=== PATIENT | male | born 1965 | race Caucasian/White ===

== ENCOUNTER 2016-09-26 12:48 | Emergency (ER) | payer MEDICARE, BC, OTHER ==
[~2016-09-26 12:48] MED LIST: ALLEGRA180 PO; LEXAPRO5 MG PO; MULTIPLE VIT PO; NEXIUM40 PO; PROTONIX PO; REFRESH1 % OP; SINGULAIR1 PO; TRAZ50 PO; WELLXL150 PO
[2016-09-26 12:50] LABS: BASOPHILS 1.7 %; BASOPHILS ABSOLUTE 0.05 10/3/uL (0.0-0.16); EOSINOPHILS 2.7 %; EOSINOPHILS ABSOLUTE 0.08 10/3/uL (0.0-0.53); HEMOGLOBIN 12.7 g/dL (13.6-17.8); IMMATURE GRANULOCYTES 0.7 %; IMMATURE GRANULOCYTES ABSOLUTE 0.02 10/3/uL (0.0-0.11); LYMPHOCYTES 23.5 %; LYMPHOCYTES ABSOLUTE 0.69 10/3/uL (0.67-4.30); MEAN CORPUS HGB CONC 34.2 g/dL (32.0-36.0); MEAN CORPUSCULAR HEMOGLOB 33.4 pg (26.0-34.0); MEAN CORPUSCULAR VOLUME 97.6 fL (80-100); MEAN PLATELET VOLUME 9.5 fL (9.2-13.0); MONOCYTES 10.6 %; MONOCYTES ABSOLUTE 0.31 10/3/uL (0.21-1.20); NEUTROPHILS 60.8 %; NEUTROPHILS ABSOLUTE 1.78 10/3/uL (2.02-8.40); RBC DISTRIBUTION WIDTH 13.1 % (12.0-16.0)
[2016-09-26 12:54] LABS: ER CBC TAT 0 Hrs 12 Mins; HEMATOCRIT 37.1 % (40.0-51.0); MANUAL DIFF NO %; PLATELET COUNT 274 10/3/uL (150-400); WHITE BLOOD CELLS 2.9 10/3/uL (4.5-10.5)
[2016-09-26 12:56] LABS: INTERNATIONAL NORMAL RATI 1.3 UNITS (-); PARTIAL THROMBO TIME 31.9 SEC (22.5-37.2); PROTIME (NOT ORD) 15.8 SEC (12.0-14.5)
[2016-09-26 13:05] LABS: INFLUENZA A SCREEN NEGATIVE (NEGATIVE); INFLUENZA B SCREEN NEGATIVE (NEGATIVE)
[2016-09-26 13:07] LABS: ALBUMIN 2.8 G/DL (3.5-5.0); BUN (BLOOD UREA NITROGEN) 21 MG/DL (6-23); CALCIUM, SERUM 8.2 MG/DL (8.5-10.4); CHEST PAIN PROFILE TAT 0 Hrs 25 Mins; CHLORIDE, SERUM 102 MMOL/L (96-112); CO2 (CARBON DIOXIDE) 32 MMOL/L (24-34); CREATININE 1.41 MG/DL (0.70-1.30); DIRECT BILIRUBIN 0.2 MG/DL (0.0-0.4); GFR AFRICAN AMERICAN 67 ML/MIN (>=60); GFR NON AFRICAN AMERICAN 58 ML/MIN (>=60); SGOT(AST) 15 U/L (5-40); SGPT(ALT) 18 U/L (5-65); SODIUM, SERUM 139 MMOL/L (135-148); TROPONIN I <0.02 NG/ML (<0.05)
[2016-09-26 13:09] LABS: ALKALINE PHOSPHATASE 58 U/L (45-117); GLUCOSE, SERUM 82 MG/DL (60-99); INDIRECT BILIRUBIN(NOT ORDER) 0.5 MG/DL (0.1-0.9); POTASSIUM, SERUM 4.1 MMOL/L (3.5-5.3); TOTAL BILIRUBIN 0.7 MG/DL (0-1.2)
[2016-09-26 13:20] LABS: ASCORBIC ACID (UR NOT ORDER) NEG (NEG); BILIRUBIN, URINE NEGATIVE (NEG); ER URINALYSIS TAT 0 Hrs 00 Mins; KETONE, URINE NEGATIVE (NEG); LEUKOCYTE ESTERASE(NOT OR NEG (NEG); NITRITE (URINE) NEG (NEG); WBC (NOT ORDERED) (RFLEX) < 1 (0-5)
[2016-09-26 13:50] LABS: PROCALCITONIN <0.05 ng/mL (<0.5)
[2017-04-17] MEDS ORDERED: VITAMIN D1000 UNI1 PO (13:00)
[2017-04-17] MEDS ORDERED: TRAZ50 PO (13:01)
[2017-04-17] MEDS ORDERED: ALLEGRA180 PO (13:01)
[2017-04-17] MEDS ORDERED: WELLSR100 PO (13:02)
[2017-04-17] MEDS ORDERED: RISPERDAL0.25 MG PO (13:02)
== END 2016-09-26 16:59 | disposition home or self-care (01) ==
LOC: ER 12:48
PROVIDERS: Emergency Medicine
DX: B34.9 Viral infection, unspecified (principal); N18.9 Chronic kidney disease, unspecified; E86.0 Dehydration; R42 Dizziness and giddiness; Z88.0 Allergy status to penicillin; Z88.1 Allergy status to other antibiotic agents; Z88.2 Allergy status to sulfonamides; Z79.899 Other long term (current) drug therapy
CPT/HCPCS: 71010; 80048; 80076; 81001; 82140; 83605; 83735; 84145; 84484; 85025; 85610; 85730; 87040; 87070; 87804; 87880; 93005; 99284

== ENCOUNTER 2016-09-30 21:14 | Inpatient (IN) | payer MEDICARE, BC, OTHER ==
--- NOTE | ~2016-09-30 | HP ---
History And Physical [place] [id number] [facility] [place]. [address] NAME: JANEY FERMIN : 67 STATUS : ADM Afshan PAT#: [id number] AGE: 50 ADM/REG DATE : 09/30/16 MR#: [id number] REPORT SERV DATE: 10/01/16 DICTATED BY: CHRIS BOSE DATE: 10/01/16 REPORT STATUS : Draft TRANSCRIBED BY: MODL DATE: 10/01/16 DATE OF ADMISSION: 09/30/2016 CHIEF COMPLAINT: Lightheadedness and dizziness. HISTORY OF PRESENT ILLNESS: This is a 50-year-old gentleman with history of Down syndrome, presenting with lightheadedness and dizziness. Please note, the patient is not able to provide any valuable history, and the patient's mother, who was at bedside, was not a good historian either. The patient is apparently coming in because he was having episodes of lightheadedness and dizziness at home for the past three weeks. Apparently, for the past three weeks, the patient has not had any water to drink, the only thing he had to drink was Dr Pepper and very little of some ice teas. With that, the patient apparently started having some episodes of lightheadedness and dizziness. The patient was seen in the ER and has had a fairly extensive workup including lab work, cultures, and imaging to include CTs of the head which were all benign. Every time, the patient was actually discharged to home from the ER. The patient had another episode today and was brought back to the ER again. In the ER, the patient was found to be afebrile and hemodynamically stable. Initial lab evaluation revealed a creatinine of 1.64. Rest of the initial labs were all benign. CT of the head was unremarkable and chest x-ray was within normal limits. The patient was then found to be slightly hypotensive throughout the ER stay with blood pressures 90s over 50s. The patient was given IV fluid resuscitation with only small amount of urine outputs. When the patient was still up, he was unsteady on his feet. Internal Medicine consultation was thus requested for admission the patient for observation overnight and for continued fluid hydration. REVIEW OF SYSTEMS: The patient's mom reports that he had subjective fevers and chills along with headaches, but otherwise, no focal infectious symptoms. The patient has not had any cough or shortness of breath. Did not have any urinary symptoms. Did not have any diarrhea. REVIEW OF SYSTEMS: 14-point review of systems also reviewed and negative other than mentioned above. MEDICATIONS: The list is still pending at this time. PAST MEDICAL HISTORY: 1. Down syndrome. 2. VSD, for which the patient follows with Dr. Jane. 3. Celiac disease. PAST SURGICAL HISTORY: Ear surgery. FAMILY HISTORY: 1. Heart disease. 2. Prostate cancer. History And Physical [address] [address] NAME: JANEY FERMIN : 67 STATUS : ADM Afshan PAT#: [id number] AGE: 50 ADM/REG DATE : 09/30/16 MR#: [id number] REPORT SERV DATE: 10/01/16 DICTATED BY: CHRIS BOSE DATE: 10/01/16 REPORT STATUS : Draft TRANSCRIBED BY: TRAVON DATE: 10/01/16 SOCIAL HISTORY: The patient does not smoke, drink alcohol, or use any illicit drugs. The patient lives at home with his mother who is at bedside here in the ER. PHYSICAL EXAMINATION: VITAL SIGNS: Temperature 98.7, blood pressure 116/75, but the patient would dip down to 90s over 50s, pulse 83, respiratory rate is 14, saturating 100% on room air. NEURO: The patient is alert and oriented x3 with no focal neurologic deficits. GENERAL: The patient is awake, does not appear to be in acute distress, and he is cooperative. NECK: No JVD. No lymphadenopathy. Normal thyroid. CHEST: No midline sternotomy scar and no tenderness to palpation. LUNGS: Clear to auscultation bilaterally with normal respiratory effort on room air. CARDIOVASCULAR: Regular rate and rhythm with no murmurs, rubs, or gallops, and PMI is nondisplaced. ABDOMEN: Soft, nontender, with active bowel sounds and no organomegaly. EXTREMITIES: No edema. Normal distal pulses. No calf tenderness. SKIN: Clean, dry, warm, and intact. LABORATORY DATA: Sodium is 142, potassium 4.2, chloride 103, BUN 23, creatinine 1.64, glucose 86, calcium 7.9, magnesium 2.2. White blood cell count is 2.9, hemoglobin 12.1, platelets 247. INR is 1.2. Troponin is less than 0.02. CT of the head was unremarkable and chest x-ray was within normal limits. ASSESSMENT: This is a 50-year-old gentleman with history of Down syndrome, ventricular septal defect, and celiac disease presenting with dehydration and acute kidney injury. 1. Dehydration from not having had enough water intake for the past few weeks. 2. Acute kidney injury from above. 3. Down syndrome. 4. Celiac disease. 5. Ventricular septal defect. PLAN: My plan is to admit the patient for observation overnight. The patient will be monitored under telemetry. The patient will be given generous IV fluid resuscitation. I will check orthostatic vital signs. In's and out's will be closely monitored as well as electrolytes and renal function as the patient is rehydrated. For celiac disease, gluten- free diet will be ordered. Otherwise, for the rest of stable past medical conditions, including Down syndrome, VSD, et al., I will continue home medications. Standard DVT prophylaxis. The patient is full code at this time. Sheila/TRAVON Chris Bose MD History And Physical [address] [address] NAME: JANEY FERMIN : 67 STATUS : ADM Afshan PAT#: [id number] AGE: 50 ADM/REG DATE : 09/30/16 MR#: [id number] REPORT SERV DATE: 10/01/16 DICTATED BY: CHRIS BOSE DATE: 10/01/16 REPORT STATUS : Draft TRANSCRIBED BY: TRAVON DATE: 10/01/16 / [id number] CC: Yash Liz M.D.
--- NOTE | ~2016-09-30 | DS ---
Discharge Summary [place] [address] [place]. [address] NAME: JANEY FERMIN : 67 STATUS : DIS Afshan PAT#: [id number] AGE: 50 ADM/REG DATE : 09/30/16 MR#: [id number] REPORT SERV DATE: 10/03/16 DICTATED BY: RADHA JOHNS DATE: 10/02/16 REPORT STATUS : Draft TRANSCRIBED BY: TRAVON DATE: 10/02/16 ADMISSION DATE: 09/30/2016 DISCHARGE DATE: 10/02/2016 DISCHARGE DIAGNOSES: 1. Pneumonia. 2. Acute kidney insufficiency/dehydration. 3. Celiac disease. 4. Down syndrome. 5. Folic acid deficiency. 6. Depression and anxiety. 7. Neutropenia secondary to infection. DISCHARGE MEDICATIONS: 1. Wellbutrin XL 150 mg p.o. daily. 2. Vitamin B12 of 1000 mcg p.o. daily. 3. Vitamin D 5000 units p.o. daily. 4. Pema 180 mg p.o. daily p.r.n. allergies. 5. Protonix 40 mg p.o. daily. 6. Risperdal 0.25 mg p.o. at bedtime. 7. Trazodone 12.5 mg p.o. at bedtime. 8. Artificial Tears each eye daily. 9. Nasal spray twice a day. 10.Levaquin 750 mg p.o. daily. 11.Folic acid 1 mg p.o. daily. DISPOSITION AND FOLLOWUP: The patient medically stable for discharge. Follow up with primary care physician in 1 week. HISTORY AND PHYSICAL: Per initial assessment. PHYSICAL EXAMINATION: DISCHARGE VITALS: Temperature 98.1, heart rate 77, blood pressure 115/72, respiratory rate 22, and O2 saturation 97 on room air. DISCHARGE LABS: WBC of 2.9, hemoglobin 11.8, hematocrit 34.7, and platelets 208. Procalcitonin less than 0.05. Sodium 143, potassium 4.3, chloride 108, bicarb 29, BUN 12, creatinine 1.2, magnesium 2. Vitamin B12 of 1030. Folic acid 4.4, troponin less than 0.02. TSH 3.52. IMAGING: CT of the head without contrast. IMPRESSION: Unremarkable noncontrast head CT. No acute intracranial pathology. CHEST X-RAY: PA and lateral. Discharge Summary [place] [id number] [address] NAME: JANEY FERMIN : 67 STATUS : DIS Afshan PAT#: [id number] AGE: 50 ADM/REG DATE : 09/30/16 MR#: [id number] REPORT SERV DATE: 10/03/16 DICTATED BY: RADHA JOHNS DATE: 10/02/16 REPORT STATUS : Draft TRANSCRIBED BY: TRAVON DATE: 10/02/16 IMPRESSION: Atelectasis and/or infiltrate in the left lower lobe posterior. HOSPITAL COURSE: This is a 50-year-old man with past medical history of Down's, presented to the ED complaining of lightheadedness and dizziness. The patient was found to be dehydrated and with evidence of renal insufficiency. The patient was admitted, started on IV fluids and antibiotics for pneumonia. Renal function at baseline with IV fluids by day of discharge. Orthostatic vital signs negative. The patient responded well to medical management. We will continue Levaquin to complete a seven-day course as an outpatient. Follow up with primary care physician in one week. Can recheck CBC at that time to follow up on neutropenia secondary to infection. Further management as an outpatient if indicated. The patient has started to take all medications as directed above. Total time for DC planning 35 minutes. PAZ/TRAVON Isma Mcnulty MD / [id number] CC: Isma Mcnulty MD
[2016-09-30 20:09] LABS: BASOPHILS 1.4 %; BASOPHILS ABSOLUTE 0.04 10/3/uL (0.0-0.16); EOSINOPHILS 1.4 %; EOSINOPHILS ABSOLUTE 0.04 10/3/uL (0.0-0.53); ER CBC TAT 0 Hrs 14 Mins; HEMATOCRIT 36.8 % (40.0-51.0); HEMOGLOBIN 12.1 g/dL (13.6-17.8); IMMATURE GRANULOCYTES 0.3 %; IMMATURE GRANULOCYTES ABSOLUTE 0.01 10/3/uL (0.0-0.11); LYMPHOCYTES 31.3 %; LYMPHOCYTES ABSOLUTE 0.92 10/3/uL (0.67-4.30); MEAN CORPUS HGB CONC 32.9 g/dL (32.0-36.0); MEAN CORPUSCULAR HEMOGLOB 32.2 pg (26.0-34.0); MEAN CORPUSCULAR VOLUME 97.9 fL (80-100); MEAN PLATELET VOLUME 9.4 fL (9.2-13.0); MONOCYTES 7.5 %; MONOCYTES ABSOLUTE 0.22 10/3/uL (0.21-1.20); NEUTROPHILS 58.1 %; NEUTROPHILS ABSOLUTE 1.71 10/3/uL (2.02-8.40); PLATELET COUNT 247 10/3/uL (150-400); RBC DISTRIBUTION WIDTH 13.7 % (12.0-16.0); RED CELL COUNT 3.76 10/6/uL (4.7-6.1); WHITE BLOOD CELLS 2.9 10/3/uL (4.5-10.5)
[2016-09-30 20:10] LABS: INTERNATIONAL NORMAL RATI 1.2 UNITS (-); MANUAL DIFF NO %; PARTIAL THROMBO TIME 28.8 SEC (22.5-37.2); PROTIME (NOT ORD) 15.4 SEC (12.0-14.5)
[2016-09-30 20:18] LABS: BUN (BLOOD UREA NITROGEN) 23 MG/DL (6-23); CALCIUM, SERUM 7.9 MG/DL (8.5-10.4); CHEST PAIN PROFILE TAT 0 Hrs 23 Mins; CHLORIDE, SERUM 103 MMOL/L (96-112); CO2 (CARBON DIOXIDE) 30 MMOL/L (24-34); CREATININE 1.64 MG/DL (0.70-1.30); GFR AFRICAN AMERICAN 56 ML/MIN (>=60); GFR NON AFRICAN AMERICAN 48 ML/MIN (>=60); GLUCOSE, SERUM 86 MG/DL (60-99); POTASSIUM, SERUM 4.2 MMOL/L (3.5-5.3); SODIUM, SERUM 142 MMOL/L (135-148); TROPONIN I <0.02 NG/ML (<0.05)
[2016-10-01] MEDS ORDERED: PROTONIX PO ×2 (00:54→05:43)
[2016-10-01 05:49] LABS: BASOPHILS 0.8 %; BASOPHILS ABSOLUTE 0.02 10/3/uL (0.0-0.16); EOSINOPHILS 2.4 %; EOSINOPHILS ABSOLUTE 0.06 10/3/uL (0.0-0.53); HEMATOCRIT 34.3 % (40.0-51.0); HEMOGLOBIN 11.6 g/dL (13.6-17.8); IMMATURE GRANULOCYTES 0.8 %; IMMATURE GRANULOCYTES ABSOLUTE 0.02 10/3/uL (0.0-0.11); LYMPHOCYTES 35.5 %; LYMPHOCYTES ABSOLUTE 0.89 10/3/uL (0.67-4.30); MEAN CORPUS HGB CONC 33.8 g/dL (32.0-36.0); MEAN CORPUSCULAR HEMOGLOB 33.4 pg (26.0-34.0); MEAN CORPUSCULAR VOLUME 98.8 fL (80-100); MEAN PLATELET VOLUME 8.9 fL (9.2-13.0); MONOCYTES 10.4 %; MONOCYTES ABSOLUTE 0.26 10/3/uL (0.21-1.20); NEUTROPHILS 50.1 %; NEUTROPHILS ABSOLUTE 1.26 10/3/uL (2.02-8.40); PLATELET COUNT 189 10/3/uL (150-400); RBC DISTRIBUTION WIDTH 13.8 % (12.0-16.0); RED CELL COUNT 3.47 10/6/uL (4.7-6.1); WHITE BLOOD CELLS 2.5 10/3/uL (4.5-10.5)
[2016-10-01 05:50] LABS: MANUAL DIFF NO %
[2016-10-01] MEDS ORDERED: CYANO1000T PO (05:52)
[2016-10-01] MEDS ORDERED: D 5000 PO (05:53)
[2016-10-01] MEDS ORDERED: NASAL SPRAY NAS (05:55)
[2016-10-01 05:59] LABS: BUN (BLOOD UREA NITROGEN) 18 MG/DL (6-23); CALCIUM, SERUM 7.7 MG/DL (8.5-10.4); CHLORIDE, SERUM 110 MMOL/L (96-112); CO2 (CARBON DIOXIDE) 27 MMOL/L (24-34); CREATININE 1.37 MG/DL (0.70-1.30); GFR AFRICAN AMERICAN 70 ML/MIN (>=60); GFR NON AFRICAN AMERICAN 60 ML/MIN (>=60); GLUCOSE, SERUM 86 MG/DL (60-99); POTASSIUM, SERUM 3.9 MMOL/L (3.5-5.3); SODIUM, SERUM 143 MMOL/L (135-148)
[2016-10-01 19:56] LABS: PHOSPHORUS, SERUM 2.6 MG/DL (2.5-4.5)
[2016-10-01 20:02] LABS: PROCALCITONIN <0.05 ng/mL (<0.5)
[2016-10-01 20:03] LABS: FOLATE 4.4 NG/ML (>5.2)
[2016-10-02 04:52] LABS: BASOPHILS 1.1 %; BASOPHILS ABSOLUTE 0.03 10/3/uL (0.0-0.16); EOSINOPHILS 1.4 %; EOSINOPHILS ABSOLUTE 0.04 10/3/uL (0.0-0.53); HEMATOCRIT 34.7 % (40.0-51.0); HEMOGLOBIN 11.8 g/dL (13.6-17.8); IMMATURE GRANULOCYTES 0.4 %; IMMATURE GRANULOCYTES ABSOLUTE 0.01 10/3/uL (0.0-0.11); LYMPHOCYTES 21.3 %; LYMPHOCYTES ABSOLUTE 0.59 10/3/uL (0.67-4.30); MEAN CORPUSCULAR HEMOGLOB 33.2 pg (26.0-34.0); MEAN CORPUSCULAR VOLUME 97.7 fL (80-100); MEAN PLATELET VOLUME 9.5 fL (9.2-13.0); MONOCYTES 11.9 %; MONOCYTES ABSOLUTE 0.33 10/3/uL (0.21-1.20); NEUTROPHILS 63.9 %; NEUTROPHILS ABSOLUTE 1.77 10/3/uL (2.02-8.40); PLATELET COUNT 206 10/3/uL (150-400); RBC DISTRIBUTION WIDTH 13.7 % (12.0-16.0); RED CELL COUNT 3.55 10/6/uL (4.7-6.1); WHITE BLOOD CELLS 2.8 10/3/uL (4.5-10.5)
[2016-10-02 04:54] LABS: MANUAL DIFF NO %
[2016-10-02 05:08] LABS: CALCIUM, SERUM 7.8 MG/DL (8.5-10.4); CHLORIDE, SERUM 108 MMOL/L (96-112); CO2 (CARBON DIOXIDE) 29 MMOL/L (24-34); CPK 47 U/L (0-200); GFR AFRICAN AMERICAN 82 ML/MIN (>=60); GFR NON AFRICAN AMERICAN 71 ML/MIN (>=60); GLUCOSE, SERUM 93 MG/DL (60-99); PHOSPHORUS, SERUM 2.3 MG/DL (2.5-4.5); POTASSIUM, SERUM 4.3 MMOL/L (3.5-5.3); SODIUM, SERUM 143 MMOL/L (135-148)
[2016-10-02 05:09] LABS: ALBUMIN 2.2 G/DL (3.5-5.0); BUN (BLOOD UREA NITROGEN) 12 MG/DL (6-23); CK-MB 0.5 NG/ML
[2016-10-02] MEDS ORDERED: LEVAQUIN750 MG PO (10:33)
[2016-10-02] MEDS ORDERED: FOLIC PO (10:34)
[2017-04-17] MEDS ORDERED: VITAMIN D1000 UNI1 PO (13:00)
[2017-04-17] MEDS ORDERED: TRAZ50 PO (13:01)
[2017-04-17] MEDS ORDERED: ALLEGRA180 PO (13:01)
[2017-04-17] MEDS ORDERED: WELLSR100 PO (13:02)
[2017-04-17] MEDS ORDERED: RISPERDAL0.25 MG PO (13:02)
== END 2016-10-02 13:42 | disposition home or self-care (01) | DRG 313 ==
LOC: ER 21:14 → CDU1 23:59
PROVIDERS: Internal Medicine; Nurse Practitioner
DX: R07.9 Chest pain, unspecified (principal); I10 Essential (primary) hypertension; F17.210 Nicotine dependence, cigarettes, uncomplicated; Z79.891 Long term (current) use of opiate analgesic; T14.8 Other injury of unspecified body region; V89.2XXS Person injured in unspecified motor-vehicle accident, traffic, sequela; R00.1 Bradycardia, unspecified
CPT/HCPCS: 70450; 71010; 71020; 80048; 80069; 82550; 82553; 82607; 82746; 83735; 84100; 84145; 84443; 84484; 85025; 85610; 85730; 96360; 99285; A9270-GY; J1956; J2405

== ENCOUNTER 2016-10-24 17:56 | Emergency (ER) | payer MEDICARE, BC, OTHER ==
[2016-10-24 17:10] LABS: BASOPHILS 0.3 %; BASOPHILS ABSOLUTE 0.02 10/3/uL (0.0-0.16); EOSINOPHILS 0.4 %; EOSINOPHILS ABSOLUTE 0.03 10/3/uL (0.0-0.53); HEMATOCRIT 37.4 % (40.0-51.0); HEMOGLOBIN 12.9 g/dL (13.6-17.8); IMMATURE GRANULOCYTES 0.3 %; IMMATURE GRANULOCYTES ABSOLUTE 0.02 10/3/uL (0.0-0.11); LYMPHOCYTES 9.8 %; LYMPHOCYTES ABSOLUTE 0.68 10/3/uL (0.67-4.30); MEAN CORPUS HGB CONC 34.5 g/dL (32.0-36.0); MEAN CORPUSCULAR HEMOGLOB 33.1 pg (26.0-34.0); MEAN CORPUSCULAR VOLUME 95.9 fL (80-100); MEAN PLATELET VOLUME 9.1 fL (9.2-13.0); MONOCYTES 5.9 %; MONOCYTES ABSOLUTE 0.41 10/3/uL (0.21-1.20); NEUTROPHILS 83.3 %; NEUTROPHILS ABSOLUTE 5.81 10/3/uL (2.02-8.40); PLATELET COUNT 181 10/3/uL (150-400); RBC DISTRIBUTION WIDTH 14.5 % (12.0-16.0)
[2016-10-24 17:12] LABS: ER CBC TAT 0 Hrs 10 Mins; MANUAL DIFF NO %
[2016-10-24 17:15] LABS: ASCORBIC ACID (UR NOT ORDER) NEG (NEG); BILIRUBIN, URINE NEGATIVE (NEG); ER URINALYSIS TAT 0 Hrs 13 Mins; KETONE, URINE NEGATIVE (NEG); LEUKOCYTE ESTERASE(NOT OR NEG (NEG); NITRITE (URINE) NEG (NEG); WBC (NOT ORDERED) (RFLEX) < 1 (0-5)
[2016-10-24 17:27] LABS: ALBUMIN 3.4 G/DL (3.5-5.0); ALKALINE PHOSPHATASE 64 U/L (45-117); BUN (BLOOD UREA NITROGEN) 21 MG/DL (6-23); CALCIUM, SERUM 8.3 MG/DL (8.5-10.4); CHLORIDE, SERUM 103 MMOL/L (96-112); CO2 (CARBON DIOXIDE) 26 MMOL/L (24-34); CREATININE 1.35 MG/DL (0.70-1.30); GFR AFRICAN AMERICAN 71 ML/MIN (>=60); GFR NON AFRICAN AMERICAN 61 ML/MIN (>=60); GLUCOSE, SERUM 91 MG/DL (60-99); SGOT(AST) 21 U/L (5-40); SGPT(ALT) 17 U/L (5-65); SODIUM, SERUM 138 MMOL/L (135-148); TOTAL PROTEIN 7.1 G/DL (6.0-8.5)
[2016-10-24 17:28] LABS: A/G RATIO 0.9 (0.7-1.9); GLOBULIN 3.7 G/DL (2.5-4.1); TOTAL BILIRUBIN 2.9 MG/DL (0-1.2)
[~2016-10-24 17:56] MED LIST changes: +CYANO1000T PO; +D 5000 PO; +FOLIC PO; +LEVAQUIN750 MG PO; +NASAL SPRAY NAS
[2016-10-24 18:31] LABS: INTERNATIONAL NORMAL RATI 1.2 UNITS (-); PARTIAL THROMBO TIME 31.4 SEC (22.5-37.2); PROTIME (NOT ORD) 15.5 SEC (12.0-14.5)
[2016-10-24 18:35] LABS: DIRECT BILIRUBIN 0.4 MG/DL (0.0-0.4); TOTAL BILIRUBIN 2.4 MG/DL (0-1.2)
[2017-04-17] MEDS ORDERED: VITAMIN D1000 UNI1 PO (13:00)
[2017-04-17] MEDS ORDERED: TRAZ50 PO (13:01)
[2017-04-17] MEDS ORDERED: ALLEGRA180 PO (13:01)
[2017-04-17] MEDS ORDERED: RISPERDAL0.25 MG PO (13:02)
[2017-04-17] MEDS ORDERED: WELLSR100 PO (13:02)
== END 2016-10-24 20:33 | disposition home or self-care (01) ==
LOC: ER 17:56
PROVIDERS: Emergency Medicine; Physician Assistant
DX: K52.9 Noninfective gastroenteritis and colitis, unspecified (principal); E80.6 Other disorders of bilirubin metabolism; Q90.9 Down syndrome, unspecified; Z88.0 Allergy status to penicillin; Z88.1 Allergy status to other antibiotic agents; Z88.2 Allergy status to sulfonamides; Z79.899 Other long term (current) drug therapy
CPT/HCPCS: 74176; 80053; 81001; 82247; 82248; 83690; 85025; 85610; 85730; 99284